=== PATIENT | female | born 1940 | race Caucasian/White ===

== ENCOUNTER → 2017-12-31 15:32 | Outpatient (CLI) | payer MEDICARE, SELFPAY ==
--- NOTE | 2017-12-31 | XR_ITS ---
XR wrist RT min 3V HISTORY: Posttraumatic pain ITS.REASON: INJURY RT WRIST AND FOREARM ORDERING PHYSICIAN: Trina Tay PATIENT AGE: 77 years COMPARISON: None FINDINGS: No fracture or dislocation. No lytic or blastic change. There is normal mineralization.. The joint spaces are well-preserved. No significant degenerative/arthritic changes. No erosive changes evident.. IMPRESSION: Negative wrist
--- NOTE | 2017-12-31 | XR_ITS ---
XR forearm RT 2V HISTORY: Posttraumatic pain ITS.REASON: INJURY TO RT FOREARM ORDERING PHYSICIAN: Trina Tay PATIENT AGE: 77 years COMPARISON: None FINDINGS: No obvious fracture, dislocation, lytic change or blastic change. Normal mineralization. Unremarkable soft tissues IMPRESSION: Negative forearm
== END ==
PROVIDERS: PCP Nurse Practitioner Family; Visit Provider Nurse Practitioner Family
DX: S69.91XA Unspecified injury of right wrist, hand and finger(s), initial encounter (principal); S59.911A Unspecified injury of right forearm, initial encounter
CPT/HCPCS: 73090; 73110

== ENCOUNTER → 2018-08-20 08:34 | Outpatient (CLI) | payer MEDICARE, SELFPAY ==
--- NOTE | 2018-08-20 08:38 | NVE_ITS ---
Venous Exam Indications: 729.5 Pain in limb. IMPRESSIONS 1. There is no evidence of significant Reflux. 2. Deep vein thrombosis involving the Left gastrocnemius History: PMH: Deep vein thrombosis. Left lower extremity venous duplex evaluation. Doppler flow study including spectral analysis, color and lazo scale imaging. Location: Vascular laboratory. Patient status: Outpatient. CRITICAL FINDINGS - Reported to: Trina Tay - Read back and verified. - 08/20/18 - 899 - DVT Tables: Venous flow and imaging: + + + + Location Overall Flow properties + + + + Left common femoral Patent Normal phasicity; spontaneous; normal augmentation; compressible + + + + Left saphenofemoral Patent Compressible junction + + + + Left profunda femoral Patent Compressible + + + + Left femoral Patent Normal phasicity; spontaneous; normal augmentation; compressible + + + + Left greater saphenous Patent Normal phasicity; spontaneous; normal augmentation; compressible + + + + Left popliteal Patent Diminished phasicity; diminished spontaneity; diminished augmentation; partially compressible + + + + Left posterior tibial Patent Compressible + + + + Left peroneal Patent Compressible + + + + Left gastrocnemius Partially occluded Compressible + + + + Left soleal Patent Compressible + + + + (Report amended ) Electronically signed by: Osbaldo Saba [id number]
== END ==
PROVIDERS: PCP Nurse Practitioner Family; Visit Provider Nurse Practitioner Family
DX: I82.402 Acute embolism and thrombosis of unspecified deep veins of left lower extremity (principal); M79.605 Pain in left leg
CPT/HCPCS: 93971

== ENCOUNTER → 2018-08-30 09:53 | Outpatient (CLI) | payer MEDICARE, SELFPAY ==
--- NOTE | 2018-08-30 09:55 | MM_ITS ---
MM Dig screening mamm BI w/CAD ORDERING PHYSICIAN : Jhony Moise MD PATIENT AGE: 78 years GENDER: Female COMPARISON: bilateral mammogram November 2015, August,. Also October right breast mammogram INDICATION: ITS.REASON: SCREENING no hormones. No new complaints. Family history:. Sister with breast cancer in her 60s TECHNIQUE: Standard CC and MLO images were obtained. R2 CAD reviewed. FINDINGS: Moderate breast density. Moderate residual fibroglandular elements prior films are helpful and supportive stable pattern bilaterally. With no new dominant mass nor suspicious calcifications either breast RIGHT BREAST:No significant new findings. No new areas of concern follow-up in one year. 2 Small cluster of benign appearing calcifications at the medial right breast are again noted & stable feature . LEFT BREAST:Small cluster of punctate dense appearing calcifications upper-outer quadrant again noted with slight progression of these benign-appearing calcifications but can be followed in one year. Not of significant concern. No new densities or areas of concern either breast.. IMPRESSION: ...... Stable bilateral mammogram.Bilateral follow-up in one year Stable benign-appearing grouped calcifications bilaterally BI-RADS Category: 2 Benign Finding(s) RECOMMENDED FOLLOW-UP: 1YR 1 YEAR FOLLOW-UP (A letter has been sent to the patient regarding results of the study.)
== END ==
PROVIDERS: PCP Nurse Practitioner Family; Visit Provider Family Medicine
DX: Z12.31 Encounter for screening mammogram for malignant neoplasm of breast (principal)
CPT/HCPCS: 77067

== ENCOUNTER → 2019-09-29 11:49 | Outpatient (CLI) | payer MEDICARE, SELFPAY ==
[2019-09-29 12:41] LABS: Blood Urea Nitrogen 26 mg/dL (7-18); Creatinine,Serum 0.89 mg/dL (0.55-1.02); Estimated Glomerular Filt Rate 62 ml/min (>60); GFR (African American) 74 ML/MIN (>60)
--- NOTE | 2019-09-29 12:45 | CT_ITS ---
PROCEDURE: CT CHEST WO CON CLINICAL INDICATION: SOB,RT LOWER SUPERFICIAL VENOUS THROMBOSIS COMPARISON: No exams were available for comparison TECHNIQUE: Axial images obtained with sagittal and coronal reformats. All CT scans at the facility use one or more dose reduction, viz: automated exposure control, ma/kV adjustment per patient size (including targeted exams where dose is matched to indication, i.e. head), or iterative reconstruction technique. FINDINGS: There is normal heart size without evidence of pericardial effusion. Scattered small lymph nodes are present. Coronary artery calcifications are noted as well as mitral valve annular calcification. No mediastinal or hilar mass. There is diffuse pulmonary fibrosis which is more prominent in the upper lobes. No lobar consolidation or collapse. There is a subpleural nodule in the lingula at 8 mm. No effusions. Upper abdominal images are unremarkable. No acute bony findings. IMPRESSION: 1. Diffuse pulmonary fibrosis 2. Coronary artery calcifications and mitral valve annular calcifications. 3. 8 mm subpleural nodule in the lingula. Recommend six-month follow-up Dictated by: Osbaldo Saba MD 09/29/2019 16:44 Electronically signed by Osbaldo Saba MD in [place] 09/29/2019 17:49
--- NOTE | 2019-09-29 16:30 | NM_ITS ---
PROCEDURE: NM PUL VENT AND PERFUSE CLINICAL INDICATION: LEUKOCYTOCTASTIC, SOB, ACUTE SUPERFICIAL VENOUS THROMBOSIS COMPARISON: CT CHEST WO CON from 09/29/2019 TECHNIQUE: The dose: 37.5 mCi technetium DTPA inhaled 8.45 mCi technetium MAA IV FINDINGS: There is patchy ventilation distribution with multiple subsegmental areas of decreased activity. Patient has pulmonary fibrotic changes on recent CT scan and chest x-ray. Perfusion images show no segmental defects that would indicate a pulmonary embolus. IMPRESSION: 1. Low probability for pulmonary embolus 2. Pulmonary fibrosis with air trapping Dictated by: Osbaldo Saba MD 09/29/2019 17:40 Electronically signed by Osbaldo Saba MD in [place] 09/29/2019 17:40
--- NOTE | 2019-09-29 17:40 | XR_ITS ---
PROCEDURE: XR CHEST 2V CLINICAL HISTORY: SOB, S/P V.Q. Shortness of breath, COMPARISON: CXR CHEST(2 VIEWS-NOT PORTABLE) from 09/01/2014 CT CHEST WO CON from 09/29/2019 FINDINGS: The cardiomediastinal silhouette and pulmonary vascularity are within normal limits. COPD. No lobar consolidation or collapse. No acute bony findings. No acute bony abnormalities. IMPRESSION: COPD, no change with no acute finding Dictated by: Osbaldo Saba MD 09/29/2019 18:01 Electronically signed by Osbaldo Saba MD in [place] 09/29/2019 18:01
== END ==
PROVIDERS: PCP Family Medicine; Visit Provider Family Medicine
DX: R06.02 Shortness of breath (principal); M31.0 Hypersensitivity angiitis; I82.811 Embolism and thrombosis of superficial veins of right lower extremity
CPT/HCPCS: 36415; 71046; 71250; 78582; 82565; 84520; A9540; A9567

== ENCOUNTER → 2019-09-30 14:21 | Outpatient (CLI) | payer MEDICARE, SELFPAY ==
--- NOTE | 2019-09-30 14:25 | MM_ITS ---
PROCEDURE: MM DIG SCREENING MAMM BI W/CAD CLINICAL INDICATION: SCREENING There is a history of breast cancer in patient's sister diagnosed after menopause. COMPARISON: [id number] DIG MAMM-DX UNI ADD VIEWS-RT from 01/06/2016 [facility] DIG MAMM-SCREEN ABRAHAN W/CAD from 02/01/2017 [facility] MM Dig screening mamm BI w/CAD from 08/30/2018 TECHNIQUE: Standard CC and MLO images were obtained. R2 CAD reviewed. FINDINGS: Mild to moderate scattered fibroglandular densities are seen throughout both breasts. There is faint arterial calcification in each breast there are few scattered benign-appearing microcalcifications left breast and there is a stable small cluster of microcalcifications central portion right breast which is stable unchanged from exams dating back through 2016. there are mole markers on each breast. There are stable nodular densities deep within left breast. There is no suspicious lesion and no suspicious microcalcifications. IMPRESSION: Fibrofatty parenchyma with no suspicious lesions seen BI-RAD Category: 2 Benign Finding(s) FOLLOW-UP: 1YR 1 Year Follow-up (A letter has been sent to the patient regarding results of the study.) Dictated by: Dr. Power Esteves MD 10/02/2019 11:[address] Power Esteves MD in [place] 10/02/2019 11:18
== END ==
PROVIDERS: PCP Nurse Practitioner Family; Visit Provider Family Medicine
DX: Z12.31 Encounter for screening mammogram for malignant neoplasm of breast (principal)
CPT/HCPCS: 77067

== ENCOUNTER → 2022-01-02 09:35 | Outpatient (CLI) | payer MEDICARE, SELFPAY ==
--- NOTE | 2022-01-02 09:40 | CA_ITS ---
FINAL REPORT TECHNIQUE: Ultrasound images of the deep venous system were obtained from the left groin to the calf veins. CLINICAL HISTORY: .prev SVT 2018 FINDINGS: There is thrombosis seen in the greater saphenous vein. The deep venous system is normally compressible. Normal flow is identified. IMPRESSION: Superficial thrombosis of the greater saphenous vein. No evidence of left lower extremity DVT. Reviewed, Interpreted and Dictated by Jai Wood III, MD Transcribed by Cherelle Louis Authenticated by Jai Wood III, MD on 01/02/2022 11:28:37 AM [facility]
== END ==
PROVIDERS: PCP Nurse Practitioner Family; Visit Provider Nurse Practitioner Family
DX: M79.605 Pain in left leg (principal); M79.89 Other specified soft tissue disorders
CPT/HCPCS: 93971

== ENCOUNTER → 2022-02-16 09:13 | Outpatient (CLI) | payer MEDICARE, SELFPAY ==
--- NOTE | 2022-02-16 09:17 | XR_ITS ---
FINAL REPORT TECHNIQUE: Bone densitometry calculations of the lumbar spine and both hips were obtained. CLINICAL HISTORY: POST MENOPAUSAL FINDINGS: Using L1-4, the bone mineral density of the spine is 0.808 g/cm2, corresponding to T-score of -2.2. Using the left hip, the bone mineral density of the femoral neck is 0.568 g/cm2, corresponding to a T-score of -3.1. Using the right hip, the bone mineral density of the femoral neck is 0.600 g/cm2, corresponding to a T-score of -2.2. NOTE: T-score: Standard deviation compared with peak bone mass of young adult mean. *Following the recommendations of the International Society of Bone Densitometry, classification of hip BMD is based on the lower of two T-scores; total hip or femoral neck. IMPRESSION: Osteoporosis: Lowest T-score is at or below -2.5. This patient's T-score meets the World Health Organization criteria for osteoporosis. Reviewed, Interpreted and Dictated by Aj Quintanilla MD Transcribed by Erendira Velasquez Authenticated by Aj Quintanilla MD on 02/16/2022 12:57:26 PM [facility]
--- NOTE | 2022-02-16 09:18 | MM_ITS ---
PROCEDURE INFORMATION: Exam: MG Bilateral Screening 3D Mammography Exam date and time: 02/16/2022 9:55 AM Age: 81 years old Clinical indication: Encounter for screening mammogram for malignant neoplasm of breast TECHNIQUE: Imaging protocol: Bilateral Screening tomosynthesis and 2D mammography including computer-aided detection (CAD) when performed. COMPARISON: 1. MG MM DIG SCREENING MAMM BI W/CAD 09/30/2019 2:31 PM 2. MG [facility] MM Dig screening mamm BI w/CAD 08/30/2018 10:06 AM FINDINGS: MAMMOGRAPHY: Breast composition: The breast tissue is composed of scattered areas of fibroglandular density. Mass: None. Architectural distortion: None. Calcifications: No suspicious calcifications. Asymmetric density: None. Skin thickening: None. Axillary adenopathy: None. IMPRESSION: No mammographic evidence of malignancy. Annual screening is recommended unless otherwise clinically indicated. ASSESSMENT: BI-RADS Category 1: Negative
== END ==
PROVIDERS: PCP Nurse Practitioner Family; Visit Provider Internal Medicine Adolescent Medicine
DX: Z78.0 Asymptomatic menopausal state (principal); Z12.31 Encounter for screening mammogram for malignant neoplasm of breast
CPT/HCPCS: 77063; 77067; 77080

== ENCOUNTER 2024-01-08 06:48 | Day surgery (SDC) | payer MEDICARE, SELFPAY ==
[2024-01-03 13:03] VITALS: BMI 23.6
[2024-01-08] MEDS: CYCLOPENTOLATE 2% OPHTH SOLN 2ML BOTTLE OP ×3 (07:11→07:24)
[2024-01-08] MEDS: TETRACAINE 0.5% OPTH SOL 15ML OP ×3 (07:11→07:24)
[2024-01-08] MEDS: PHENYLEPHRINE 2.5% OPHTH SOLN 2ML 0.0500000000000000028 ML OP ×3 (07:12→07:24)
[2024-01-08 07:17] VITALS: BP 128/75; PULSE 76; RESP 18; TEMP 37; O2SAT 94
[2024-01-08] MEDS: SODIUM CHLORIDE 0.9% 10ML FLUSH SYRINGE 10 ML IV ×2 (08:05→08:27)
[2024-01-08 08:22] VITALS: BP 132/78; PULSE 62; RESP 17; O2SAT 98
[2024-01-08 08:27] VITALS: BP 130/66; PULSE 62; RESP 17; O2SAT 99
[2024-01-08] MEDS: LIDOCAINE 1% PF 2ML AMPULE 2 ML IJ (08:27)
[2024-01-08] MEDS: MIDAZOLAM 2MG/2ML VIAL 1 MG IV (08:27)
[2024-01-08] MEDS: TOBRAMYCIN/DEX OPTH SUSP 2.5ML OP (08:27)
[2024-01-08] MEDS: TIMOLOL 0.5% OPTH SOLN 5ML OP (08:27)
[2024-01-08 08:32] VITALS: BP 141/68; PULSE 64; RESP 17; O2SAT 99
[2024-01-08 08:37] VITALS: BP 130/68; PULSE 63; RESP 18; O2SAT 99
[2024-01-08 08:44] VITALS: BP 133/70; PULSE 65; RESP 16; TEMP 36.8; O2SAT 95
== END 2024-01-08 08:57 | disposition home or self-care (01) ==
PROVIDERS: PCP Internal Medicine Adolescent Medicine; Visit Provider Ophthalmology
DX: H25.812 Combined forms of age-related cataract, left eye (principal); H25.89 Other age-related cataract
CPT/HCPCS: 66982; V2632

== ENCOUNTER 2024-03-21 08:13 | Day surgery (SDC) | payer MEDICARE, SELFPAY ==
[2024-03-20 11:26] VITALS: BMI 23.2
[2024-03-21 08:30] VITALS: BP 143/81; PULSE 66; RESP 18; TEMP 36.6; O2SAT 98
[2024-03-21] MEDS: LIDOCAINE 1% 20ML MDV 20 ML (09:10)
[2024-03-21 09:28] VITALS: BP 180/73; PULSE 58; RESP 17; TEMP 36.6; O2SAT 97
--- NOTE | 2024-03-21 09:28 | EXP.OP.NOTE ---
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 Her left upper extremity was prepped and draped in a sterile fashion. After infiltration with local anesthetic an elliptical incision was made around the lesion. A 1 mm margin was obtained circumferentially. The lesion was excised in toto and passed off for pathologic evaluation after being marked for margin (short superior/long thenar). Electrocautery was utilized to achieve hemostasis. Skin was reapproximated with 5-0 nylon in a mattress fashion to facilitate hemostasis. Dressings were applied and the patient was discharged home in stable condition. Condition: stable Disposition: no change Specimens:: Left upper extremity skin neoplasm Complications:: No immediate
== END 2024-03-21 09:35 | disposition home or self-care (01) ==
PROVIDERS: PCP Internal Medicine Adolescent Medicine; Visit Provider Surgery
PROC: (CPT 11601; principal; 2024-03-21 11:30)
DX: D04.62 Carcinoma in situ of skin of left upper limb, including shoulder (principal); L57.0 Actinic keratosis
CPT/HCPCS: 11601

== ENCOUNTER 2024-04-15 11:10 | Outpatient (POV) | payer MEDICARE, SELFPAY | END 2024-04-15 23:59 | disposition home or self-care (01) | LOC: SC 11:11 | PROVIDERS: PCP Internal Medicine Adolescent Medicine; Visit Provider Dermatology | DX: Z00.00 Encounter for general adult medical examination without abnormal findings (principal) ==

== ENCOUNTER 2024-06-10 15:29 | Outpatient (POV) | payer MEDICARE, SELFPAY | END 2024-06-10 23:59 | disposition home or self-care (01) | LOC: SC 15:29 | PROVIDERS: PCP Internal Medicine Adolescent Medicine; Visit Provider Dermatology | DX: Z00.00 Encounter for general adult medical examination without abnormal findings (principal) ==

== ENCOUNTER 2024-10-09 13:15 | Outpatient (CLI) | payer MEDICARE, SELFPAY ==
--- NOTE | 2024-10-09 13:20 | MM_ITS ---
PROCEDURE INFORMATION: Exam: MG Bilateral Screening 3D Mammography Exam date and time: 10/09/2024 1:08 PM Age: 84 years old Clinical indication: Screening mammogram TECHNIQUE: Imaging protocol: Bilateral Screening tomosynthesis and 2D mammography including computer-aided detection (CAD) when performed. COMPARISON: 02/16/2022, 09/30/2019 FINDINGS: MAMMOGRAPHY: Breast composition: There are scattered areas of fibroglandular density. Mass: None. Architectural distortion: No new or suspicious architectural distortion. Calcifications: Stable benign-appearing calcifications are present. No new or suspicious cluster of microcalcifications have developed. Asymmetric density: No new or suspicious asymmetric density is present Skin thickening: None. Axillary adenopathy: None. IMPRESSION: No mammographic evidence of malignancy. Recommend annual screening mammography unless otherwise clinically indicated. ASSESSMENT: BI-RADS category 2: Benign.
== END 2024-10-09 23:59 | disposition home or self-care (01) ==
LOC: RAD 13:16
PROVIDERS: PCP Internal Medicine Adolescent Medicine; Visit Provider Internal Medicine Adolescent Medicine
DX: Z12.31 Encounter for screening mammogram for malignant neoplasm of breast (principal)
CPT/HCPCS: 77063; 77067

== ENCOUNTER 2024-10-30 13:51 | Outpatient (POV) | payer MEDICARE, SELFPAY | END 2024-10-30 23:59 | disposition home or self-care (01) | LOC: SC 13:52 | PROVIDERS: Visit Provider Specialist/Technologist | DX: Z00.00 Encounter for general adult medical examination without abnormal findings (principal) ==